=== PATIENT | male | born 2000 | race Caucasian/White ===

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

== ENCOUNTER 2024-03-27 19:02 | Emergency (ER) | payer SELFPAY ==
[2024-03-27 19:42] VITALS: BP 159/79; PULSE 85
== END 2024-03-27 21:11 | disposition home or self-care (01) ==
LOC: MW.ED 19:02
DX: S89.91XA Unspecified injury of right lower leg, initial encounter (principal); Z75.8 Other problems related to medical facilities and other health care; W21.05XA Struck by basketball, initial encounter; Y93.67 Activity, basketball
CPT/HCPCS: 73562-26-RT; 73562-RT; 99282; 99283

== ENCOUNTER 2024-05-23 06:07 | Day surgery (SDC) | payer BC ==
[2024-05-23] MEDS: Lactated Ringers 1,000 ML IV SCH (06:45)
[2024-05-23] MEDS ORDERED: Morphine 2 MG/ML SYRINGE IVPUSH PRN (07:08)
[2024-05-23] MEDS ORDERED: droPERidol 5 MG/2 ML SDV IVPUSH PRN (07:08)
[2024-05-23] MEDS ORDERED: Albuterol 0.083% 2.5 MG/3 ML Neb Soln NEB PRN (07:08)
[2024-05-23] MEDS ORDERED: Ondansetron 4 MG/2 ML SDV IVPUSH PRN (07:08)
[2024-05-23] MEDS ORDERED: Metoclopramide 10 MG/2 ML SDV IVPUSH PRN (07:08)
[2024-05-23] MEDS ORDERED: Naloxone 0.4 MG/ML SDV IVPUSH PRN (07:08)
[2024-05-23] MEDS ORDERED: fentaNYL 100 MCG/2 ML SDV ONE ×2 (07:10→08:35)
[2024-05-23] MEDS ORDERED: Propofol 200 MG/20 ML SDV ONE (07:10)
[2024-05-23] MEDS ORDERED: Water For Injection, Sterile 20 ML ONE (07:11)
[2024-05-23] MEDS ORDERED: dexmedeTOMIDine HCl 200 MCG/2 ML SDV ONE (07:11)
[2024-05-23] MEDS: Scopalamine 1mg/3day Transdermal Patch TOP ONE (07:15)
[2024-05-23] MEDS ORDERED: Ropivacaine 0.5% 5 MG/ML 30 ML SDV ONE (07:18)
[2024-05-23] MEDS ORDERED: Lidocaine 1% 5 ML VIAL ONE (07:23)
[2024-05-23] MEDS ORDERED: ceFAZolin 2 GM Vial ONE (07:59)
[2024-05-23] MEDS ORDERED: ceFAZolin 2 GM in Sodium Chloride 0.9% 50 ML IV ONE (08:00)
[2024-05-23] MEDS ORDERED: Dexamethasone 4 MG/ML 5 ML MDV ONE (08:04)
[2024-05-23] MEDS ORDERED: Ondansetron 4 MG/2 ML SDV ONE (08:04)
[2024-05-23] MEDS ORDERED: Ketorolac 30 MG/ML SDV ONE (09:49)
[2024-05-23] MEDS: HYDROmorphone 1 MG/ML Syringe IVPUSH PRN (10:48)
[2024-05-23] MEDS: fentaNYL 50 MCG/ML SDV IVPUSH PRN (10:50)
[2024-05-23 13:47] VITALS: BP 122/57; PULSE 62
== END 2024-05-23 12:45 | disposition home or self-care (01) ==
LOC: MW.SDS 06:07
PROVIDERS: ATTEND Orthopaedic Surgery
DX: S83.511A Sprain of anterior cruciate ligament of right knee, initial encounter (principal); X58.XXXA Exposure to other specified factors, initial encounter
CPT/HCPCS: 29888; 64447; A9270; J0131; J0690; J1100; J1170; J1885; J2405; J2704; J2795; J3010; J7120; 01320; C1713; J3490